=== PATIENT | male | born 1945 | race Caucasian/White ===

== ENCOUNTER 2024-04-03 11:59 | Inpatient (IN) | payer MEDICARE ==
[2024-04-03] MEDS ORDERED: Acetaminophen 650 MG Suppository PR PRN (15:01)
[2024-04-03] MEDS ORDERED: Ondansetron PF 4 MG/2 ML Vial IVP PRN (15:01)
[2024-04-03] MEDS ORDERED: Ondansetron ODT 4 MG TAB PO PRN (15:01)
[2024-04-03 15:14] LABS: Hematocrit 25.1 % (42.0-52.0); Hemoglobin 8.1 g/dL (14.0-18.0)
[2024-04-03 15:30] VITALS: BMI 24.5
[2024-04-03] MEDS: Sodium Chloride 0.9% 1,000 ML IV SCH (17:36)
[2024-04-03] MEDS: Pantoprazole 40 MG VIAL IVP SCH (18:30)
[2024-04-03] MEDS: GoLYTELY 4,000 ml Bottle PO SCH (18:45)
[2024-04-03 21:12] LABS: Hematocrit 25.4 % (42.0-52.0); Hemoglobin 8.2 g/dL (14.0-18.0)
[2024-04-04 04:17] LABS: #Basophils 0.04 10x3/uL (0.0-0.2); %Basophils 0.5 % (0.0-1.0); %Eosinophils 0.7 % (0.0-10.0); %Lymphocytes 24.9 % (21.0-51.0); %Monocytes 9.4 % (0.0-10.0); Hematocrit 26.3 % (42.0-52.0); Hemoglobin 8.4 g/dL (14.0-18.0); Mean Corpuscular HGB CONC 31.9 g/dL (32.0-36.0); Mean Corpuscular Hemoglobin 27.9 pg (27.0-31.0); Mean Corpuscular Volume 87.4 fL (78.0-98.0); Mean Platelet Volume 10.2 fL (7.4-10.4); Platelet Count 150 10x3/uL (130-400); RBC Distribution Width 14.1 % (11.5-14.5); Red Blood Cell (RBC) Count 3.01 mill/uL (4.70-6.10)
[2024-04-04] MEDS: Sodium Chloride 0.9% 1,000 ML IV SCH (04:17)
[2024-04-04 04:44] LABS: Anion Gap 11 mmol/L (10-20); BUN (Urea Nitrogen) 20 mg/dL (8.4-25.7); Calc. Creatinine Clearance 76 mL/min (70-130); Carbon Dioxide 24 mmol/L (23-31); Chloride 109 mmol/L (98-107); Estimated GFR 89; Glucose 91 mg/dL (83-110); Potassium 3.6 mmol/L (3.5-5.1); Sodium 140 mmol/L (136-145)
[2024-04-04] MEDS ORDERED: fentaNYL 50 mcg/mL 1 mL Vial ONE (09:47)
[2024-04-04] MEDS ORDERED: PROPOFOL 20 ML ONE (09:47)
[2024-04-04] MEDS ORDERED: Etomidate 40 MG (20 mL) VIAL ONE (09:47)
[2024-04-04] MEDS ORDERED: Lidocaine 1% PF 5 ML VIAL ONE (10:19)
[2024-04-04 13:07] LABS: Hemoglobin 9.7 g/dL (14.0-18.0)
[2024-04-04 15:08] LABS: Hematocrit 25.8 % (42.0-52.0); Hemoglobin 8.3 g/dL (14.0-18.0)
[2024-04-04] MEDS ORDERED: hydrALAZINE 20 MG/ML VIAL SLOW IVP PRN (17:14)
[2024-04-05 05:05] LABS: #Basophils 0.05 10x3/uL (0.0-0.2); %Basophils 0.8 % (0.0-1.0); %Eosinophils 1.4 % (0.0-10.0); %Lymphocytes 22.6 % (21.0-51.0); %Monocytes 11.9 % (0.0-10.0); %Neutrophils 62.8 % (42.0-75.0); Hematocrit 24.2 % (42.0-52.0); Hemoglobin 7.8 g/dL (14.0-18.0); Mean Corpuscular HGB CONC 32.2 g/dL (32.0-36.0); Mean Corpuscular Volume 86.7 fL (78.0-98.0); Mean Platelet Volume 10.3 fL (7.4-10.4); Platelet Count 145 10x3/uL (130-400); RBC Distribution Width 14.5 % (11.5-14.5); Red Blood Cell (RBC) Count 2.79 mill/uL (4.70-6.10)
[2024-04-05 05:32] LABS: Anion Gap 8 mmol/L (10-20); BUN (Urea Nitrogen) 9 mg/dL (8.4-25.7); Calc. Creatinine Clearance 78 mL/min (70-130); Calcium 7.9 mg/dL (7.8-10.44); Carbon Dioxide 25 mmol/L (23-31); Chloride 109 mmol/L (98-107); Estimated GFR 90; Glucose 90 mg/dL (83-110); Potassium 3.2 mmol/L (3.5-5.1); Sodium 139 mmol/L (136-145)
[2024-04-05] MEDS: Pantoprazole DR 40 MG TAB PO SCH (09:20)
[2024-04-05] MEDS: Potassium Chloride 20 MEQ TAB PO SCH (09:20)
[2024-04-05] MEDS: Flecainide 50 MG TAB PO SCH (20:22)
[2024-04-05] MEDS: Tamsulosin HCl 0.4 MG CAP PO SCH (20:22)
[2024-04-05] MEDS: Atorvastatin Calcium 10 MG TAB PO SCH (20:22)
[2024-04-05] MEDS: Carvedilol 6.25 MG TAB PO SCH (20:22)
[2024-04-05] MEDS: Acetaminophen 325 MG TAB PO PRN (20:22)
[2024-04-05] MEDS: Losartan 25 MG TAB PO SCH (20:23)
[2024-04-06 05:20] LABS: #Basophils 0.04 10x3/uL (0.0-0.2); %Basophils 0.8 % (0.0-1.0); %Eosinophils 2.3 % (0.0-10.0); %Lymphocytes 27.1 % (21.0-51.0); %Monocytes 11.7 % (0.0-10.0); %Neutrophils 57.9 % (42.0-75.0); Hematocrit 25.4 % (42.0-52.0); Hemoglobin 8.2 g/dL (14.0-18.0); Mean Corpuscular HGB CONC 32.3 g/dL (32.0-36.0); Mean Corpuscular Hemoglobin 27.8 pg (27.0-31.0); Mean Corpuscular Volume 86.1 fL (78.0-98.0); Mean Platelet Volume 10.4 fL (7.4-10.4); Platelet Count 162 10x3/uL (130-400); RBC Distribution Width 14.5 % (11.5-14.5); Red Blood Cell (RBC) Count 2.95 mill/uL (4.70-6.10)
[2024-04-06 05:35] LABS: Anion Gap 8 mmol/L (10-20); BUN (Urea Nitrogen) 6 mg/dL (8.4-25.7); Calc. Creatinine Clearance 72 mL/min (70-130); Calcium 8.3 mg/dL (7.8-10.44); Carbon Dioxide 26 mmol/L (23-31); Chloride 108 mmol/L (98-107); Estimated GFR 88; Glucose 101 mg/dL (83-110); Magnesium 1.9 mg/dL (1.6-2.6); Potassium 3.3 mmol/L (3.5-5.1); Sodium 139 mmol/L (136-145)
[2024-04-06] MEDS: Potassium Chloride 20 MEQ TAB PO SCH (08:54)
[2024-04-06] MEDS: Donepezil HCl 5 MG TAB PO SCH (08:54)
[2024-04-06 15:19] VITALS: BP 169/72; TEMP 97.3
== END 2024-04-06 18:31 | disposition home or self-care (01) | DRG 378 ==
LOC: 2NO 14:09
PROVIDERS: ADMIT Internal Medicine; ATTEND Internal Medicine
PROC: 30233N1 Transfusion of Nonautologous Red Blood Cells into Peripheral Vein, Percutaneous Approach (ICD-10-PCS; principal; 2024-04-03)
PROC: 0DJ08ZZ Inspection of Upper Intestinal Tract, Via Natural or Artificial Opening Endoscopic (ICD-10-PCS; 2024-04-04)
PROC: 0DBK8ZZ Excision of Ascending Colon, Via Natural or Artificial Opening Endoscopic (ICD-10-PCS; 2024-04-04)
PROC: 0DBN8ZZ Excision of Sigmoid Colon, Via Natural or Artificial Opening Endoscopic (ICD-10-PCS; 2024-04-04)
PROC: 0DBH8ZZ Excision of Cecum, Via Natural or Artificial Opening Endoscopic (ICD-10-PCS; 2024-04-04)
DX: K57.31 Diverticulosis of large intestine without perforation or abscess with bleeding (principal); D62 Acute posthemorrhagic anemia; I10 Essential (primary) hypertension; E78.5 Hyperlipidemia, unspecified; N40.0 Benign prostatic hyperplasia without lower urinary tract symptoms; G30.9 Alzheimer's disease, unspecified; K29.80 Duodenitis without bleeding; F02.A0 Dementia in other diseases classified elsewhere, mild, without behavioral disturbance, psychotic disturbance, mood disturbance, and anxiety; Z86.73 Personal history of transient ischemic attack (TIA), and cerebral infarction without residual deficits; Z90.49 Acquired absence of other specified parts of digestive tract; Z90.89 Acquired absence of other organs; Z91.041 Radiographic dye allergy status; Z79.01 Long term (current) use of anticoagulants; Z79.02 Long term (current) use of antithrombotics/antiplatelets; Z79.899 Other long term (current) drug therapy
CPT/HCPCS: 36415; 80048; 83735; 85025; 86850; 86900; 86901; 88305; J2470; J2704; J3010; J7030; P9016